=== PATIENT | female | born 1985 | race Caucasian/White ===

== ENCOUNTER 2017-06-17 21:24 | Inpatient (IN) | payer OTHER ==
[~2017-06-17] VITALS: Ht 175.3 cm; Wt 125.0 kg
[2017-06-17] MEDS ORDERED: PNV 29-1 TABLE1 EACH (22:42)
--- NOTE | 2017-06-19 08:07 | PR ---
[facility] [place] [facility] [address] [facility] [place], [place] [address] Signed PP Progress Notes Datetime Report Generated by CPN: 06/19/2017 08:07 SUBJECTIVE: [id number] Pain: Within normal limits Pain Comments: Got some sleep last night. Vital Signs: [id number] Vital Signs: Reviewed; Within Normal Limits EXAM: [id number] Cardiovascular: Not Done Respiratory: Not Done Abdomen/Uterus: Abnormal Lochia: Normal Vulva/Perineum: Not Done Breasts: Not Done CVA Tenderness: Not Done Extremities: Normal Incision: Not Applicable Progress: Normal Exam Comments: Fundus firm, NT @ U. H/H 9.3/27.4, WBC 10.2, plat 168k IMPRESSION/PLAN/PROCEDURES: [id number] Impression: Normal progression Plan: Continue present management Progress Notes: Doing well. Will continue present care. Signing Physician: Negar Benoit MD CC: *Electronically Signed* 06/19/17 0807 NEGAR BENOIT MD PATIENT NAME: ALFONSO VILLANUEVA PROGRESS NOTE DATE OF : 83 PHYSICIAN: NEGAR BENOIT MD RPT #: [id number] REPORT IS CONFIDENTIAL AND NOT TO BE RELEASED WITHOUT AUTHORIZATION
--- NOTE | 2017-06-20 08:35 | PR ---
[facility] [address] [facility] [place], [place] [address] Signed PP Progress Notes Datetime Report Generated by CPN: 06/20/2017 08:35 SUBJECTIVE: [id number] Pain: Within normal limits Pain Comments: Got some sleep last night. Nausea/Vomiting: Denies Vital Signs: [id number] Vital Signs: Reviewed; Within Normal Limits EXAM: [id number] Cardiovascular: Not Done Respiratory: Not Done Abdomen/Uterus: Abnormal Lochia: Normal Vulva/Perineum: Not Done Breasts: Not Done CVA Tenderness: Not Done Extremities: Normal Incision: Not Applicable Progress: Normal Exam Comments: Fundus firm, NT @ U. IMPRESSION/PLAN/PROCEDURES: [id number] Impression: Normal progression Plan: Discharge Procedures: None Progress Notes: Doing well. She is ready for D/C. Signing Physician: Negar Benoit MD CC: *Electronically Signed* 06/20/17 0835 NEGAR BENOIT MD PATIENT NAME: ALFONSO VILLANUEVA PROGRESS NOTE DATE OF : 83 PHYSICIAN: NEGAR BENOIT MD RPT #: [id number] REPORT IS CONFIDENTIAL AND NOT TO BE RELEASED WITHOUT AUTHORIZATION
== END 2017-06-20 11:30 | disposition home or self-care (01) | DRG 775 ==
LOC: FBCO 21:24 → FBC 21:50
PROVIDERS: ADMIT Obstetrics & Gynecology
PROC: 00HU33Z Insertion of Infusion Device into Spinal Canal, Percutaneous Approach (ICD-10-PCS; 2017-06-17)
PROC: 3E0R3BZ Introduction of Anesthetic Agent into Spinal Canal, Percutaneous Approach (ICD-10-PCS; 2017-06-17)
PROC: 10E0XZZ Delivery of Products of Conception, External Approach (ICD-10-PCS; principal; 2017-06-18)
PROC: 0KQM0ZZ Repair Perineum Muscle, Open Approach (ICD-10-PCS; 2017-06-18)
DX: O60.14X0 Preterm labor third trimester with preterm delivery third trimester, not applicable or unspecified (principal); O70.1 Second degree perineal laceration during delivery; Z37.0 Single live birth; Z3A.36 36 weeks gestation of pregnancy
CPT/HCPCS: 01960; 36415; 85027; J2540; J2590; J7120